=== PATIENT | female | born 1950 | race Caucasian/White ===

== ENCOUNTER 2019-09-08 08:34 | Day surgery (SDC) | payer MEDICARE, BC ==
[~2019-09-08] VITALS: Ht 165.1 cm; Wt 53.1 kg
[2019-09-08] MEDS ORDERED: PROG100 (09:15)
[2019-09-08] MEDS ORDERED: CLIMARA1 EACH TD (09:16)
== END 2019-09-08 10:52 | disposition home or self-care (01) ==
LOC: ORSCSDS 08:34
PROVIDERS: Internal Medicine Gastroenterology
PROC: 0DJD8ZZ Inspection of Lower Intestinal Tract, Via Natural or Artificial Opening Endoscopic (ICD-10-PCS; principal; 2019-09-08 10:00)
DX: Z12.11 Encounter for screening for malignant neoplasm of colon (principal); K64.8 Other hemorrhoids; K57.30 Diverticulosis of large intestine without perforation or abscess without bleeding; Z79.899 Other long term (current) drug therapy
CPT/HCPCS: J2704; J7120

== ENCOUNTER → 2022-02-18 | Outpatient (CLI) | payer MEDICARE, BC ==
[~2022-02-18] MED LIST: CLIMARA1 EACH TD; PROG100
== END | disposition home or self-care (01) ==
LOC: LAB SHORT 14:42
DX: D22.39 Melanocytic nevi of other parts of face (principal)
CPT/HCPCS: 88305

== ENCOUNTER → 2024-11-02 | Outpatient (CLI) | payer MEDICARE, BC ==
[2024-11-04 21:57] LABS: HSV SUBTYPE SOURCE L CHEEK
== END ==
LOC: LAB 12:55 → LAB SHORT 12:55
PROVIDERS: General Practice
DX: L08.0 Pyoderma (principal)
CPT/HCPCS: 87070; 87077; 87147; 87186; 87205; 87529